=== PATIENT | female | born 1990 | race Caucasian/White ===

== ENCOUNTER 2017-07-04 03:18 | Emergency (ER) | payer BC, MEDICAID ==
[2017-07-04] MEDS ORDERED: KETOROLAC TROMETHAMINE INJ/PF 30 MG/1 ML SDV IM ONE (08:40)
[2017-07-04] MEDS ORDERED: CYCLOBENZAPRINE HCL 10 MG TABLET PO ONE (08:40)
--- NOTE | 2017-07-04 08:41 | ER Document Report ---
HPI - HPI Pain Level: 4 Context: Patient is a 27-year-old female presents emergency department with chief complaint of left sided neck pain. Patient states she woke up with pain in her neck after sleeping on the bed. 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 She states that she took Tylenol at home as well as utilizing her heat pack. States that she did not get any better throughout the day. She states it is worse with movement. Otherwise denies any headache, fever, lethargy, nausea, vomiting, vision changes. Otherwise healthy female - CONSTITUTIONAL Constitutional: DENIES: Fever, Chills - EENT EENT: REPORTS: Sore Throat - When swallowing. DENIES: Ear Pain, Eye problems - NEURO Neurology: REPORTS: Headache. DENIES: Weakness, Vision blurred, Dizzinesss / Vertigo - CARDIOVASCULAR Cardiovascular: DENIES: Chest pain - RESPIRATORY Respiratory: DENIES: Trouble Breathing, Coughing - GASTROINTESTINAL Gastrointestinal: DENIES: Abdominal Pain, Black / Bloody Stools - URINARY Urinary: DENIES: Dysuria, Urgency, Frequency - REPRODUCTIVE Reproductive: REPORTS: : Past Medical History - Social History Smoking Status: Former Smoker Frequency of alcohol use: None Drug Abuse: None Family History: Reviewed & Not Pertinent Patient has suicidal ideation: No Patient has homicidal ideation: No - Past Medical History Cardiac Medical History: Denies: Hx Coronary Artery Disease, Hx Heart Attack, Hx Hypertension Pulmonary Medical History: Denies: Hx Asthma, Hx Bronchitis, Hx COPD, Hx Pneumonia Neurological Medical History: Denies: Hx Cerebrovascular Accident, Hx Seizures Renal/ Medical History: Denies: Hx Peritoneal Dialysis Musculoskeltal Medical History: Denies Hx Arthritis Past Surgical History: Reports: Hx Tonsillectomy - Immunizations Hx Diphtheria, Pertussis, Tetanus Vaccination: Yes - 2010 Vertical Provider Document - CONSTITUTIONAL Agree With Documented VS: Yes Notes: PHYSICAL EXAM GENERAL: Alert, interacts well. HEAD: Normocephalic, atraumatic. NECK: Full range of motion, tendnerness and pain reproducible to palpation of left SCM and trapezius. Supple. Trachea midline. no carotid bruits LUNGS: Clear to auscultation bilaterally, no wheezes, rales, or rhonchi. No respiratory distress. HEART: Regular rate and rhythm. No murmurs, gallops, or rubs. EXTREMITIES: Moves all 4 extremities spontaneously. No edema, radial and dorsalis pedis pulses 2/4 bilaterally. No cyanosis. NEUROLOGICAL: Alert and oriented x4. Normal speech. PSYCH: Normal affect, normal mood. SKIN: Warm, dry, normal turgor. No rashes or lesions noted. - INFECTION CONTROL TRAVEL OUTSIDE OF THE [place] IN LAST 30 DAYS: No Course - Re-evaluation Re-evalutation: 07/04/17 08:39 Patient is a 27 year old female who is hemodynamically stable, no acute distress and afebrile. Patient does not have any focal neurologic deficits, nuchal rigidity, vital signs are within normal limits no papilledema. Presentation is consistent with muscle strain. Patient is otherwise no acute distress and hemodynamically stable. Low index for suspicion of TN, meningitis or mass. Low suspicion for acute life-threatening etiology with intact neuro exam therefore no additional imaging or laboratory testing is indicated. Will discharge patient home with strict follow-up with PCP within the next week. Discharge - Discharge Clinical Impression: Neck pain Condition: Good Disposition: HOME, SELF-CARE Instructions: Muscle Relaxers ([facility]), Neck Injury (Cervical Strain) ([facility]) Additional Instructions: Please return if you have worsening pain, weakness, numbness, notice increasing redness or swelling to the area, develop a fever, or have any other symptoms that are concerning to you. Prescriptions: Cyclobenzaprine HCl [Flexeril 10 mg Tablet] 10 mg PO TIDP PRN #15 tab PRN Reason: Forms: Return to Work
[2017-07-04 09:09] VITALS: BP 131/98
== END 2017-07-04 09:15 | disposition home or self-care (01) ==
LOC: ER 03:18
DX: O99.89 Other specified diseases and conditions complicating pregnancy, childbirth and the puerperium (principal); M54.2 Cervicalgia; O99.519 Diseases of the respiratory system complicating pregnancy, unspecified trimester; J02.9 Acute pharyngitis, unspecified; O26.899 Other specified pregnancy related conditions, unspecified trimester; R51 Headache; Z3A.00 Weeks of gestation of pregnancy not specified; Z87.891 Personal history of nicotine dependence
CPT/HCPCS: 99283; 96372; J1885

== ENCOUNTER 2018-06-04 09:30 | Emergency (ER) | payer OTHER, BC ==
[2018-06-04] MEDS ORDERED: KETOROLAC TROMETHAMINE 60 MG/2 ML SDV IM ONE (10:09)
--- NOTE | 2018-06-04 10:14 | ER Document Report ---
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 For the last 2 days. No left arm numbness tingling sensation nausea vomiting palpitation or diaphoresis. No fever chills cough or other constitutional symptoms ] History obtained from [patient] Symptoms began:[ today] Onset: [gradual] Timing: [constant, now gone] Quality: ["pain"] Intensity: [moderate] Location: [Sternocostal regions of both sides] Radiation: [none] Migration: [none] Aggravating factors: [none] Relieving factors: [none] Major PE risk factors: [none] Major aortic dissection risk factors: [none] Review of Systems: All other systems negative as reviewed. CONSTITUTIONAL No fever, No chills, No sweats. EYES No eye pain. ENT No URI symptoms, No sore throat, No ear pain. CARDIOVASCULAR + chest pain, No palpitations, No edema. RESPIRATORY No Cough, No SOB, No wheezing. GASTROINTESTINAL No abdominal pain, No nausea, No diarrhea, No vomiting, No GI Bleeding. GENITOURINARY No UTI symptoms. MUSCULOSKELETAL No back pain, No calf swelling, No calf pain. SKIN No Rash. NEUROLOGIC No Headache Physical Exam CONSTITUTIONAL Vital signs reviewed, Patient appears comfortable, Alert and oriented X 3, Normal stature. HEAD Atraumatic, Normocephalic. EYES Eyes are normal to inspection, No discharge from eyes, Extraocular muscles intact, Sclera are normal, Conjunctiva are normal. ENT Ears normal to inspection, Nose examination normal, Posterior pharynx normal, Mouth normal to inspection. NECK Normal ROM, No jugular venous distention, No meningeal signs, no carotid bruit. RESPIRATORY CHEST Tenderness over the paraspinal muscles of the lower thoracic vertebra Chest is sharply tender over the sternocostal regions of both lower anterior chest wall., Breath sounds normal, No respiratory distress. CARDIOVASCULAR RRR, No murmurs, Normal S1 S2, No rub, No gallop. ABDOMEN Abdomen is nontender, No pulsatile masses, No other masses, Bowel sounds normal, No distension, No peritoneal signs, No hernias. BACK There is no CVA Tenderness, There is no tenderness to palpation, Normal inspection. UPPER EXTREMITY Inspection normal, No cyanosis, No clubbing, No edema, 2+ radial pulses. LOWER EXTREMITY Inspection normal, No cyanosis, No clubbing, No edema, No calf tenderness, 2+ femoral pulses. NEURO No focal motor deficits, No focal sensory deficits, Speech normal. SKIN Skin is warm, Skin is dry, Skin is normal color. LYMPHATIC No adenopathy in neck. PSYCHIATRIC Normal affect. TRAVEL OUTSIDE OF THE [place] IN LAST 30 DAYS: No - HPI Notes: Dictated - Related Data Allergies/Adverse Reactions: No Known Allergies Allergy (Verified 06/04/18 09:32) Past Medical History - General Information source: Patient - Social History Smoking Status: Never Smoker Chew tobacco use (# tins/day): No Frequency of alcohol use: Occasional Lives with: Family Family History: Reviewed & Not Pertinent Patient has suicidal ideation: No Patient has homicidal ideation: No - Past Medical History Cardiac Medical History: Denies: Hx Coronary Artery Disease, Hx Heart Attack, Hx Hypertension Pulmonary Medical History: Denies: Hx Asthma, Hx Bronchitis, Hx COPD, Hx Pneumonia Neurological Medical History: Denies: Hx Cerebrovascular Accident, Hx Seizures Renal/ Medical History: Denies: Hx Peritoneal Dialysis Musculoskeletal Medical History: Denies Hx Arthritis Past Surgical History: Reports: Hx Tonsillectomy - Immunizations Hx Diphtheria, Pertussis, Tetanus Vaccination: Yes - 2010 Review of Systems - Review of Systems Notes: Dictated Physical Exam - Notes Notes: Dictated Discharge - Discharge Clinical Impression: Chest wall pain Condition: Fair Disposition: HOME, SELF-CARE Instructions: Anti-Inflammatory Medication ([facility]), Chest Wall Pain ([facility]) Prescriptions: Metaxalone [Skelaxin] 800 mg PO TID #30 tablet Naproxen 500 mg PO BID #30 tablet
--- NOTE | 2018-06-04 11:04 | EKG REPORT ---
SEVERITY:- DEFECTIVE ECG - SINUS OR ECTOPIC ATRIAL RHYTHM LEFT ATRIAL ABNORMALITY LOW VOLTAGE IN FRONTAL LEADS arm leads reversal, repeat ekg needed. : Confirmed by: Tylor James MD 04-Jun-2018 11:04:25
== END 2018-06-04 13:00 | disposition home or self-care (01) ==
LOC: ER 09:30
DX: R07.89 Other chest pain (principal); M54.89 Other dorsalgia
CPT/HCPCS: 93005; 99284; 96372; 93010; J1885

== ENCOUNTER 2019-05-07 10:31 | Emergency (ER) | payer BC ==
--- NOTE | 2019-05-07 11:09 | ER Document Report ---
ED Medical Screen (RME) - General Stated Complaint: RAPID HEART RATE/LEG PAIN Time Seen by Provider: 05/07/19 10:55 TRAVEL OUTSIDE OF THE [place] IN LAST 30 DAYS: No - HPI Notes: 05/07/19 11:06 28-year-old female presents the ED with sudden onset shortness of breath with left lower leg swelling that started approximately 2 hours ago. Patient denies any previous history of DVTs, she does have varicose veins however. Denies smoking, no history of asthma no recent surgery, immobilization, control. Patient does admit that she feels short of breath with the onset of her left lower leg swelling. Denies any factor V or clotting disorders. Has not tried anything [id number], denies any chest pain, dizziness lightheadedness or weakness. I have greeted and performed a rapid initial assessment of this patient. A comprehensive ED assessment and evaluation of the patient, analysis of test results and completion of the medical decision making process will be conducted by additional ED providers. PHYSICAL EXAMINATION: GENERAL: Well-appearing, well-nourished and in no acute distress. HEAD: Atraumatic, normocephalic. EYES: Pupils equal round extraocular movements intact, conjunctiva are normal. ENT: Nares patent NECK: Normal range of motion LUNGS: No respiratory distress Musculoskeletal: Normal range of motion. Left calf with approximately a 2 cm x 3 cm lateral aspect ecchymosis. distal pules +2 bilaterally NEUROLOGICAL: Normal speech, normal gait. PSYCH: Normal mood, normal affect. SKIN: Warm, Dry, normal turgor, no rashes or lesions noted. - Related Data Allergies/Adverse Reactions: No Known Allergies Allergy (Verified 05/07/19 11:00) Past Medical History - Past Medical History Cardiac Medical History: Denies: Hx Coronary Artery Disease, Hx Heart Attack, Hx Hypertension Pulmonary Medical History: Denies: Hx Asthma, Hx Bronchitis, Hx COPD, Hx Pneumonia Neurological Medical History: Denies: Hx Cerebrovascular Accident, Hx Seizures Renal/ Medical History: Denies: Hx Peritoneal Dialysis Musculoskeltal Medical History: Denies Hx Arthritis Past Surgical History: Reports: Hx Tonsillectomy - Immunizations Hx Diphtheria, Pertussis, Tetanus Vaccination: Yes - 2010 Physical Exam - Vital signs Vitals: Temp Pulse Resp BP Pulse Ox 98.0 F 87 16 142/99 H 97 05/07/19 10:49 05/07/19 10:49 05/07/19 10:49 05/07/19 10:49 05/07/19 10:49 Course - Vital Signs Vital signs: Temp Pulse Resp BP Pulse Ox 98.0 F 87 16 142/99 H 97 05/07/19 10:49 05/07/19 10:49 05/07/19 10:49 05/07/19 10:49 05/07/19 10:49
[2019-05-07 11:38] LABS: ABSOLUTE BASOPHILS # (AUTO) 0.1 10^3/uL (0.0-0.2); ABSOLUTE EOSINOPHILS # (AUTO) 0.1 10^3/uL (0.0-0.6); ABSOLUTE LYMPHOCYTES (AUTO) 2.7 10^3/uL (0.5-4.7); ABSOLUTE MONOCYTES (AUTO) 0.8 10^3/uL (0.1-1.4); ABSOLUTE NEUT (AUTO) 6.2 10^3/uL (1.7-8.2); BASOPHILS % (AUTO) 0.9 % (0-2); EOSINOPHILS % (AUTO) 1.3 % (0-6); HEMATOCRIT 43.7 % (36.0-47.0); HEMOGLOBIN 14.9 g/dL (12.0-15.5); LYMPHOCYTES % (AUTO) 27.5 % (13-45); MEAN CORPUSCULAR HEMOGLOBIN 33.2 pg (27.0-33.4); MEAN CORPUSCULAR HGB CONC 34.2 g/dL (32.0-36.0); MEAN CORPUSCULAR VOLUME 97 fl (80-97); MONOCYTES % (AUTO) 8.2 % (3-13); PLATELET COUNT 309 10^3/uL (150-450); RED BLOOD COUNT 4.49 10^6/uL (3.72-5.28); SEGMENTED NEUTROPHILS % (AUTO) 62.1 % (42-78); TOTAL CELLS COUNTED % (AUTO) 100 %
[2019-05-07 11:53] LABS: ALBUMIN 4.4 g/dL (3.5-5.0); ALKALINE PHOSPHATASE 65 U/L (38-126); ANION GAP 10 (5-19); ASPARTATE AMINO TRANSFERASE 23 U/L (14-36); BILIRUBIN,DIRECT 0.1 mg/dL (0.0-0.4); BILIRUBIN,TOTAL 0.4 mg/dL (0.2-1.3); BLOOD UREA NITROGEN 11 mg/dL (7-20); CALCIUM 9.6 mg/dL (8.4-10.2); CARBON DIOXIDE 28 mmol/L (22-30); CHLORIDE 102 mmol/L (98-107); GLUCOSE 81 mg/dL (75-110); POTASSIUM 4.5 mmol/L (3.6-5.0); TOTAL PROTEIN 7.9 g/dL (6.3-8.2)
[2019-05-07 12:08] LABS: APPEARANCE,URINE SLIGHTLY-CLOUDY; BILIRUBIN,URINE NEGATIVE (NEGATIVE); COLOR,URINE YELLOW; GLUCOSE, URINE NEGATIVE (NEGATIVE); KETONES,URINE NEGATIVE (NEGATIVE); LEUKOCYTE ESTERASE,URINE NEGATIVE (NEGATIVE); NITRITE,URINE NEGATIVE (NEGATIVE); PROTEIN,URINE NEGATIVE (NEGATIVE); URINE SPECIFIC GRAVITY 1.018; UROBILINOGEN,URINE NEGATIVE mg/dL (<2.0)
--- NOTE | 2019-05-07 13:12 | RADIOLOGY REPORT (SQ) ---
EXAM DESCRIPTION: CHEST 2 VIEWS COMPLETED DATE/TIME: 05/07/2019 12:31 pm REASON FOR STUDY: SOB COMPARISON: None. EXAM PARAMETERS: NUMBER OF VIEWS: two views TECHNIQUE: Digital Frontal and Lateral radiographic views of the chest acquired. RADIATION DOSE: NA LIMITATIONS: none FINDINGS: LUNGS AND PLEURA: No opacities, masses or pneumothorax. No pleural effusion. MEDIASTINUM AND HILAR STRUCTURES: No masses or contour abnormalities. HEART AND VASCULAR STRUCTURES: Heart normal size. No evidence for failure. BONES: No acute findings. HARDWARE: None in the chest. OTHER: No other significant finding. IMPRESSION: NO ACUTE RADIOGRAPHIC FINDING IN THE CHEST. TECHNICAL DOCUMENTATION: JOB ID: [id number] [employer]- All Rights Reserved Reading location - IP/workstation name: [email or web address]
--- NOTE | 2019-05-07 14:18 | ER Document Report ---
ED General - General Chief Complaint: Leg Pain Stated Complaint: RAPID HEART RATE/LEG PAIN Time Seen by Provider: 05/07/19 10:55 Primary Care Provider: GRICELDA RAZO PA-C [Primary Care Provider] - Follow up as needed TRAVEL OUTSIDE OF THE [place] IN LAST 30 DAYS: No - HPI Notes: Patient is a 28-year-old female who presents emergency department for evaluations of palpitations, shortness of breath, chest pain. She woke this morning, stated that she had palpitations, felt generally weak, and then developed shortness of breath. She states she slept more than normal, slept about 12 hours overnight, not abnormal for her. She does admit she is been working very long hours. She states he is also had some chest pain, worse over the last week. When asked her the total duration, she states is been going on for at least several months. Is a burning pain. It last for several minutes when it comes on. Nothing seems to make it come on, nothing seems to make it better. She noted a "knot" on the outside of her left leg, where her varicosities have been, and she became concerned. - Related Data Allergies/Adverse Reactions: No Known Allergies Allergy (Verified 05/07/19 11:00) Home Medications: Lisinopril, Adderall Past Medical History - General Information source: Patient - Social History Smoking Status: Never Smoker Chew tobacco use (# tins/day): No Frequency of alcohol use: None Drug Abuse: None Family History: Reviewed & Not Pertinent Patient has suicidal ideation: No Patient has homicidal ideation: No - Past Medical History Cardiac Medical History: Reports: Hx Hypertension Denies: Hx Coronary Artery Disease, Hx Heart Attack Pulmonary Medical History: Denies: Hx Asthma, Hx Bronchitis, Hx COPD, Hx Pneumonia Neurological Medical History: Denies: Hx Cerebrovascular Accident, Hx Seizures Renal/ Medical History: Denies: Hx Peritoneal Dialysis Musculoskeletal Medical History: Denies Hx Arthritis Psychiatric Medical History: Reports: Hx Attention Deficit Hyperactivity Disorder Past Surgical History: Reports: Hx Tonsillectomy - Immunizations Hx Diphtheria, Pertussis, Tetanus Vaccination: Yes - 2010 Review of Systems - Review of Systems Constitutional: No symptoms reported EENT: No symptoms reported Cardiovascular: See HPI Respiratory: See HPI Gastrointestinal: No symptoms reported Genitourinary: No symptoms reported Musculoskeletal: No symptoms reported Skin: No symptoms reported Neurological/Psychological: No symptoms reported Physical Exam - Vital signs Vitals: Temp Pulse Resp BP Pulse Ox 98.0 F 87 16 142/99 H 97 05/07/19 10:49 05/07/19 10:49 05/07/19 10:49 05/07/19 10:49 05/07/19 10:49 - Notes Notes: Vital signs reviewed, please refer to chart. Head is normocephalic, atraumatic. Pupils equal round, reactive to light. Neck is supple without meningismus. Heart is regular rate and rhythm. Lungs are clear to auscultation bilaterally. Abdomen is soft, nontender, normoactive bowel sounds throughout. Extremities without cyanosis, clubbing. Posterior calves are nontender. She does have extensive varicosities to bilateral lower extremities, left greater than right. On the lateral aspect of the left calf, approximately 6 cm distal to the fibular head, there is a 3 cm ecchymotic appearing structure, consistent with possible hematoma, that is minimally tender to palpation. Peripheral pulses are equal. Skin is warm and dry. Patient is awake, alert, neurological exam is nonfocal. Course - Re-evaluation Re-evalutation: 05/07/19 14:16 Patient presents emergency department for evaluation. She has had palpitations, shortness of breath. They were all onset this morning. The patient has no history of DVT, no family history of DVT. She has no risk factors for DVT. She is a negative PERC score. Doppler of her left lower extremity preliminarily interpreted as negative for any signs of DVT, findings consistent mostly with a hematoma. Her lab work was unremarkable, including a negative d-dimer. At this point I do not have a high suspicion for DVT/PE being the symptom causing this patient. I suspect this might be in part due to stress. She is told she needs to follow-up with her primary care provider, she voiced understanding. She is to return to the ED with worsening extending symptoms of any sort. - Vital Signs Vital signs: Temp Pulse Resp BP Pulse Ox 98.0 F 87 16 142/99 H 97 05/07/19 11:01 05/07/19 11:01 05/07/19 11:01 05/07/19 11:01 05/07/19 11:01 - Laboratory Result Diagrams: 05/07/19 11:06 05/07/19 11:06 Laboratory results interpreted by me: 05/07/19 11:14 Urine Blood SMALL H - Diagnostic Test Radiology reviewed: Image reviewed, Reports reviewed Radiology results interpreted by me: 05/07/19 14:17 Chest X-Ray 05/07/19 11:03 IMPRESSION: NO ACUTE RADIOGRAPHIC FINDING IN THE CHEST. - EKG Interpretation by Me Additional EKG results interpreted by me: 05/07/19 14:17 Sinus mechanism with a rate of 76 bpm, PVC noted. Normal axis and intervals, no acute ST changes concerning for ischemia or infarction. Discharge - Discharge Clinical Impression: Palpitations Chest pain Qualifiers: Chest pain type: unspecified Qualified Code(s): R07.9 - Chest pain, unspecified Hematoma of left lower extremity Qualifiers: Encounter type: initial encounter Qualified Code(s): S80.12XA - Contusion of left lower leg, initial encounter Dyspnea Qualifiers: Dyspnea type: unspecified Qualified Code(s): R06.00 - Dyspnea, unspecified Condition: Stable Disposition: HOME, SELF-CARE Instructions: Chest Pain of Unclear Cause ([facility]), Palpitations (Irregular or Rapid Heartrate) ([facility]), Hematoma ([facility]) Additional Instructions: Rest, stay well-hydrated. Follow-up with your primary care provider this week. Return to the ED with worsening or new concerning symptoms of any sort. Forms: Return to Work Referrals: GRICELDA RAZO PA-C [Primary Care Provider] - Follow up as needed
[2019-05-07 15:19] VITALS: BP 149/79
--- NOTE | 2019-05-07 16:27 | XCELERA REPORT ---
[address] [facility] [address] Lower Extremity Venous Evaluation Procedure: Color flow and duplex imaging of the veins of the left lower extremity as well as the right Common Femoral vein. Right Sided Venous Evaluation The right common femoral vein is fully compressible. Spontaneous and phasic flow is present in the right common femoral vein. Left Sided Venous Evaluation Lucent , oval subcutaneous mass at area of lump, concern, 1.7 cms . Normal vessel filling wall to wall, compression and augmentation as well as Colour flow down to the infrageniculate veins. Interpretation Summary No duplex evidence of DVT or obstruction in the left lower extremity nor in the right Common Femoral vein. Subcutaneous mass, consistent with hematoma, or other abnormality. Name: CHET WILDER Age: 28 yrs Gender: Female : 1990 Patient Status: Emergency Patient Location: ER Study Date: 05/07/2019 11:35 AM Reason For Study: LLE leg swelling Ordering Physician: MAYELA BAIN Performed By: Gaetano Dukes : MAYELA BAIN > Justin Seth
--- NOTE | 2019-05-07 20:54 | EKG REPORT ---
SEVERITY:- OTHERWISE NORMAL ECG - SINUS RHYTHM VENTRICULAR PREMATURE COMPLEX : Confirmed by: Tylor James MD 07-May-2019 20:52:59
== END 2019-05-07 14:25 | disposition home or self-care (01) ==
LOC: ER 10:31
DX: R07.9 Chest pain, unspecified (principal); I49.3 Ventricular premature depolarization; R00.2 Palpitations; S80.12XA Contusion of left lower leg, initial encounter; X58.XXXA Exposure to other specified factors, initial encounter; I83.93 Asymptomatic varicose veins of bilateral lower extremities; R06.02 Shortness of breath; I10 Essential (primary) hypertension; F90.9 Attention-deficit hyperactivity disorder, unspecified type; Z79.899 Other long term (current) drug therapy
CPT/HCPCS: 36415; 71046; 80053; 81001; 81025; 83880; 85025; 85379; 93005; 93010; 93971; 99285